=== PATIENT | female | born 1930 | race African-American/Black ===

== ENCOUNTER 2016-12-23 10:50 | Outpatient (CLI) | payer MEDICARE, MEDICAID ==
--- NOTE | 2016-12-23 13:28 | MMO ---
BILATERAL MAMMOGRAMS: HISTORY: Screening mammography. COMPARISON: 11/21/2013 and 12/08/2015. FINDINGS: Scattered fibroglandular densities and benign-appearing predominantly vascular calcifications are ap parent. There is no dominant mass or suspicious calcifications. The study was evaluated with the assistance of computer-aided detection. IMPRESSION: BI-RADS category 1. Negative. Suggest routine followup. POS: ONEL
== END 2016-12-23 10:51 | disposition home or self-care (01) ==
LOC: MAMMO 10:50
PROVIDERS: ATTEND Nurse Practitioner Family
DX: Z12.31 Encounter for screening mammogram for malignant neoplasm of breast (principal)
CPT/HCPCS: 77067; G0202

== ENCOUNTER 2017-12-27 10:00 | Outpatient (CLI) | payer MEDICARE, MEDICAID | END 2017-12-27 10:01 | disposition home or self-care (01) | LOC: BICMAMMO 10:00 | PROVIDERS: ATTEND Nurse Practitioner Family | DX: Z12.31 Encounter for screening mammogram for malignant neoplasm of breast (principal) | CPT/HCPCS: 77063; 77067 ==

== ENCOUNTER 2018-12-28 09:33 | Outpatient (CLI) | payer MEDICARE, MEDICAID ==
--- NOTE | 2018-12-28 09:57 | MMO ---
Bilateral MAMMO Bilat Screen [facility]. CLINICAL HISTORY: Patient is 88 years old and is seen for screening. VIEWS: The views performed were: . FILMS COMPARED: The present examination has been compared to a prior imaging study performed at [facility] on 12/27/2017. This study has been interpreted with the assistance of computer-aided detection. MAMMOGRAM FINDINGS: There are scattered fibroglandular densities. There is a focal asymmetry seen in the upper-outer region of the right breast. In the left breast, there are no suspicious masses, calcifications or areas of architectural distortion. IMPRESSION: FOCAL ASYMMETRY IN THE RIGHT BREAST REQUIRES ADDITIONAL EVALUATION. SPOT COMPRESSION IS RECOMMENDED. AN ULTRASOUND EXAM IS RECOMMENDED IF NEEDED. THE RESULTS OF THIS EXAM WERE SENT TO THE PATIENT. ACR BI-RADS Category 0 - Incomplete: Need additional imaging evaluation. [facility] will notify the patient of the need for additional imaging services. MAMMOGRAPHY NOTE: 1. A negative mammogram report should not delay a biopsy if a dominant of clinically suspicious mass is present. 2. Approximately 10% to 15% of breast cancers are not detected by mammography. 3. Adenosis and dense breasts may obscure an underlying neoplasm. Reported by: Tamica OCONNELL Electonically Signed: [id number]
--- NOTE | 2018-12-28 10:40 | MMO ---
Right Breast MAMMO Unilat Diag [facility]DI [facility]. CLINICAL HISTORY: Patient is 88 years old and is seen for diagnostic exam. The patient has no family history of breast cancer. The patient has no personal history of cancer. VIEWS: The views performed were: right craniocaudal spot compression with tomosynthesis; right mediolateral oblique spot compression with tomosynthesis; and right mediolateral with tomosynthesis. FILMS COMPARED: The present examination has been compared to prior imaging studies performed at [facility] on 12/23/2016, 12/27/2017 and 12/28/2018. This study has been interpreted with the assistance of computer-aided detection. MAMMOGRAM FINDINGS: There are scattered fibroglandular densities. There is an irregular mass measuring 6 millimeters seen in the right breast at 8 o'clock. IMPRESSION: MASS IN THE RIGHT BREAST IS SUSPICIOUS. BIOPSY IS RECOMMENDED. THE RESULTS OF THIS EXAM WERE SENT TO THE PATIENT. ACR BI-RADS Category 4 - Suspicious abnormality - biopsy should be considered MAMMOGRAPHY NOTE: 1. A negative mammogram report should not delay a biopsy if a dominant of clinically suspicious mass is present. 2. Approximately 10% to 15% of breast cancers are not detected by mammography. 3. Adenosis and dense breasts may obscure an underlying neoplasm. Reported by: Tamica OCONNELL Electonically Signed: [id number]
--- NOTE | 2018-12-28 11:24 | ULT ---
ULTRASOUND RIGHT BREAST: Date: 12/28/18 HISTORY: Breast mass. COMPARISON: Multiple prior mammograms, including a diagnostic mammogram same date. FINDINGS: Real-time Romero scale and color evaluation of the right breast was first performed by the technologist and then by the radiologist in real-time. Corresponding to the mammographic finding, 8 o'clock, 6 cm from the nipple, is a taller than wide mas s with posterior acoustic shadowing, angular margins, and peripheral echogenic halo. This measures up to 6-7 mm. IMPRESSION: BI-RADS Category 4 - Suspicious. Ultrasound-guided biopsy recommended. Provider notified of findings via telephone. CODE CR. POS: OFF
== END 2018-12-28 09:34 | disposition home or self-care (01) ==
LOC: BICMAMMO 09:33
PROVIDERS: ATTEND Nurse Practitioner Family
DX: Z12.31 Encounter for screening mammogram for malignant neoplasm of breast (principal); N64.89 Other specified disorders of breast
CPT/HCPCS: 76642; 77063; 77065; 77067; G0279

== ENCOUNTER → 2019-01-04 | Day surgery (SDC) | payer MEDICARE, MEDICAID ==
--- NOTE | 2019-01-04 14:00 | MMO ---
Right Breast MAMMO Unilat Diag [facility]DI [facility]. CLINICAL HISTORY: Patient is 88 years old and is seen for breast biopsy. The patient has no family history of breast cancer. The patient has no personal history of cancer. VIEWS: The views performed were: . FILMS COMPARED: The present examination has been compared to prior imaging studies performed at [facility] on 12/27/2017 and 12/28/2018. This study has been interpreted with the assistance of computer-aided detection. MAMMOGRAM FINDINGS: There are scattered fibroglandular densities. There is a biopsy clip seen in the upper-outer region of the right breast. IMPRESSION: BIOPSY CLIP IN THE RIGHT BREAST IS CONFIRMED UTILIZING POST PROCEDURE MAMMOGRAM. THE RESULTS OF THIS EXAM WERE SENT TO THE PATIENT. MAMMOGRAPHY NOTE: 1. A negative mammogram report should not delay a biopsy if a dominant of clinically suspicious mass is present. 2. Approximately 10% to 15% of breast cancers are not detected by mammography. 3. Adenosis and dense breasts may obscure an underlying neoplasm. Reported by: SHREE ALAS MD Electonically Signed: [id number]
--- NOTE | 2019-01-04 14:48 | ULT ---
ULTRASOUND GUIDED RIGHT BREAST BIOPSY: INDICATION: Right breast mass, lower outer quadrant. PROCEDURE: Informed consent was obtained and the patient was escorted to the procedural suite and placed in the supine position. The right breast was prepped and draped in the standard sterile fashion. Topical a nesthesia with 1% Lidocaine was performed. A small skin incision was made through which a 14 gauge b iopsy device was advanced to the leading edge of the mass. Four subsequent core specimens were acqui red under ultrasound guidance with imaging stored for documentation. The biopsy needle was removed. The biopsy marking clip was then advanced to the site of biopsy. No procedural complications were p resent. The patient was discharged in stable condition following postprocedural mammographic clip pl acement views. IMPRESSION: Technically successful ultrasound-guided right breast biopsy. Pathology results are pending. POS: OFF
== END ==
LOC: BICULT 11:54
PROVIDERS: ATTEND Nurse Practitioner Family
PROC: 0H9T3ZX Drainage of Right Breast, Percutaneous Approach, Diagnostic (ICD-10-PCS; principal; 2019-01-04)
DX: C50.511 Malignant neoplasm of lower-outer quadrant of right female breast (principal)
CPT/HCPCS: 19083; 88305; 88341; 88342

== ENCOUNTER 2019-02-12 06:38 | Outpatient (CLI) | payer MEDICARE, MEDICAID ==
[2019-02-12 11:18] LABS: #Eosinphils 0.1 thou/uL (0.0-0.7); #Lymphocytes 1.7 thou/uL (1.20-3.40); #Monocytes 0.3 thou/uL (0.11-0.59); #Neutrophils 2.3 thou/uL (1.40-6.50); %Basophils 0.6 % (0.0-1.0); %Eosinophils 2.4 % (0.0-10.0); %Monocytes 7.6 % (0.0-10.0); %Neutrophils 51.4 % (42.0-75.0); Hemoglobin 13.5 g/dL (12.0-16.0); Mean Corpuscular HGB CONC 32.1 g/dL (32.0-36.0); Mean Corpuscular Hemoglobin 31.8 pg (27.0-31.0); Platelet Count 201 thou/uL (130-400); RBC Distribution Width 12.4 % (11.5-14.5); Red Blood Cell (RBC) Count 4.24 mill/uL (4.20-5.40); White Blood Cell (WBC) Count 4.5 thou/uL (4.8-10.8)
[2019-02-12 11:54] LABS: Anion Gap 14 mmol/L (10-20); BUN (Urea Nitrogen) 14 mg/dL (9.8-20.1); Calc. Creatinine Clearance 0 mL/min (70-130); Calcium 9.4 mg/dL (7.8-10.44); Carbon Dioxide 26 mmol/L (23-31); Chloride 106 mmol/L (98-107); Estimated GFR-MDRD Greater than 90; Glucose 97 mg/dL (83-110); Sodium 142 mmol/L (136-145)
--- NOTE | 2019-02-15 13:10 | EKG ---
Test Reason : Blood Pressure : / mmHG Vent. Rate : 076 BPM Atrial Rate : 076 BPM P-R Int : 200 ms QRS Dur : 118 ms QT Int : 400 ms P-R-T Axes : 040 -55 007 degrees QTc Int : 450 ms Normal sinus rhythm Left anterior fascicular block Moderate voltage criteria for LVH, may be normal variant Abnormal ECG Confirmed by MORENO MENDEZ ([id number]) on 02/15/2019 1:09:28 PM Referred By: DEWAYNE Confirmed By:MORENO MENDEZ
== END 2019-02-12 06:39 | disposition home or self-care (01) ==
LOC: LABBT 06:38
PROVIDERS: ATTEND Surgery
DX: Z01.818 Encounter for other preprocedural examination (principal); C50.911 Malignant neoplasm of unspecified site of right female breast
CPT/HCPCS: 80048; 85025; 93005; 93010

== ENCOUNTER 2019-02-15 06:46 | Day surgery (SDC) | payer MEDICARE, MEDICAID ==
--- NOTE | 2019-02-15 08:20 | MMO ---
MAMMOGRAPHIC GUIDED NEEDLE LOCALIZATION: CLINICAL HISTORY: Right breast cancer. PROCEDURE: Informed consent was obtained. The patient was escorted to procedural suite. Right breast was prepped and draped in standard sterile fashion, placed into compression, and area of recent biopsy with an adjacent marking clip was localized. Using tangential imaging due to posterior location of the findin g, a lateral approach was selected. Using a 7.5 cm Buxton needle, the area of recent biopsy was traversed with needle and wire, which is adjacent to posteriorly located marking clip. Needle was sec ured to the patient. Images were stored and marked for documentation. Patient was transported to nuclear medicine to undergo right breast lymphoscintigraphy. IMPRESSION: Technically successful right breast needle localization. Transcribed Date/Time: 02/15/2019 8:47 AM
--- NOTE | 2019-02-15 09:08 | NM ---
Right breast lymphoscintigraphy CLINICAL HISTORY: Right breast malignancy FINDINGS: Views of the right upper chest reveal radiotracer activity localizing to right axillary lym ph nodes. IMPRESSION: Scintigraphic activity within right axillary lymph nodes.
[2019-02-15] MEDS ORDERED: Bupivacaine 0.25% HCL 30 ML VIAL ONE (11:57)
[2019-02-15] MEDS ORDERED: Isosulfan Blue 50 MG/5 ML VIAL ONE (11:57)
[2019-02-15] MEDS ORDERED: Lidocaine 1% w/Epinephrine 1:100K 20 ML VIAL ONE (11:57)
[2019-02-15] MEDS ORDERED: Midazolam HCl 2 mg/2 ml Vial ONE (12:04)
[2019-02-15] MEDS ORDERED: Fentanyl 100 MCG/2 ML VIAL ONE (12:04)
[2019-02-15] MEDS ORDERED: HYDROcodone/Acetaminophen 5/325 mg Tablet ONE (13:51)
[2019-02-15] MEDS ORDERED: Lidocaine 1% PF 5 ML VIAL ONE (13:54)
[2019-02-15] MEDS ORDERED: Ondansetron PF 4 MG/2 ML Vial ONE (13:54)
[2019-02-15] MEDS ORDERED: PROPOFOL 200 MG/20 ML VIAL ONE (13:54)
--- NOTE | 2019-02-16 09:29 | MMO ---
SURGICAL SPECIMEN RADIOGRAPH: INDICATIONS: Excisional biopsy. FINDINGS: Radiograph of specimen from excisional biopsy is provided, which reveals a marking clip as well as ma mmographic density. Traversing vascular calcifications are present. IMPRESSION: Marking clip and adjacent parenchymal density is contained within the excised radiograph specimen. Telephone call to the operating suite provided at the time of radiograph submission. CODE CR
--- NOTE | 2019-02-16 10:37 | OP ---
DATE OF PROCEDURE: 02/15/2019 PREOPERATIVE DIAGNOSIS: Right breast invasive ductal cell carcinoma, clinical stage T1 N0 M0. POSTOPERATIVE DIAGNOSIS: Right breast invasive ductal cell carcinoma, clinical stage T1 N0 M0. PROCEDURES: 1. Right partial mastectomy after needle localization. 2. Right deep axillary node biopsy using sentinel node protocol. ANESTHESIA: General. ESTIMATED BLOOD LOSS: Minimal. COMPLICATIONS: None. SPECIMENS: Right breast max marked with 2 short superior, one long lateral. Specimen x-ray revealed the clip and lesion to be in the specimen sent to Path for final diagnosis. Neely lymph node sent for final diagnosis as well. TECHNIQUE: The patient undergone preop lymphoscintigraphy as well as placement of needle localization wire to area previous biopsy of known cancer in the right breast. She was taken to the operating room and laid supine on the operating table. After general anesthetic was obtained, a 5 mL of methylene blue dye was infiltrated under the right nipple, massaged for 10 minutes. The right chest, breast, and axilla were all prepped and draped in a sterile fashion. Incision was made on the inferior hairline of the right axilla. Neoprobe was used to find an area of increased uptake. The clavipectoral fascia was entered. Neely node one and two are removed and sent to pathology for final diagnosis. Background count dropped to zero. The wounds were irrigated and closed using 3-0 Vicryl, 4-0 Monocryl, and Dermabond. Next, incision was made around the right and inferior aspects of the right nipple. On the areolar edge, flaps were raised superiorly and the inferolaterally all the way down the chest wall around the end of needle localization wire. The specimen was marked with 2 short superior, one long lateral, and sent to specimen. X-ray, which revealed the clip and lesion to be visible in the specimen. The specimen was sent to Path for final diagnosis. The wound was irrigated. Local anesthetic was applied. The wound was closed using 3-0 Vicryl, 4-0 Monocryl, and Dermabond. Patient was sent to Recovery in stable condition. All instrument counts, needle counts, and lap counts were correct. Job ID: [id number]
== END 2019-02-15 15:10 | disposition home or self-care (01) ==
LOC: SDC 06:46
PROVIDERS: ATTEND Surgery
PROC: 0HBT0ZZ Excision of Right Breast, Open Approach (ICD-10-PCS; principal; 2019-02-15)
PROC: 07B50ZX Excision of Right Axillary Lymphatic, Open Approach, Diagnostic (ICD-10-PCS; 2019-02-15)
DX: C50.511 Malignant neoplasm of lower-outer quadrant of right female breast (principal); M19.90 Unspecified osteoarthritis, unspecified site; I11.9 Hypertensive heart disease without heart failure; G89.29 Other chronic pain; Z17.0 Estrogen receptor positive status [ER+]; Z79.899 Other long term (current) drug therapy
CPT/HCPCS: 19281; 19301; 38525; 38900; 76098; 78195; 88307; 88342; A9541; Q9968; J0690; J2001; J2250; J2405; J2704; J3010; S0020

== ENCOUNTER 2019-04-02 08:43 | Outpatient (CLI) | payer MEDICARE, MEDICAID ==
--- NOTE | 2019-04-02 09:27 | BD ---
EXAM: Bone densitometry using DEXA HISTORY: 88 yo female. Screening for postmenopausal osteoporosis FINDINGS: L1--bone mineral density 1.218 g/sq cm; T score 2.1 L2--bone mineral density 1.286 g/sq cm; T score 2.3 L3--bone mineral density 1.261 g/sq cm; T score 1.6 L4--bone mineral density 1.213 g/sq cm; T score 1.4 Total L1-L4--bone mineral density 1.243 g/sq cm; T score 1.8 Left femoral neck--bone mineral density0.601; T score -2.2 Total proximal left femur--bone mineral density 0.808; T score -1.1 The 10 year fracture risk for a major osteoporotic fracture is 6.1% and for a hip fracture is 1.9%. IMPRESSION: Osteopenia
== END 2019-04-02 08:44 | disposition home or self-care (01) ==
LOC: BICMAMMO 08:43
PROVIDERS: ATTEND Internal Medicine Hematology & Oncology
DX: Z13.820 Encounter for screening for osteoporosis (principal); M85.852 Other specified disorders of bone density and structure, left thigh; Z78.0 Asymptomatic menopausal state
CPT/HCPCS: 77080

== ENCOUNTER 2020-01-15 10:08 | Outpatient (CLI) | payer MEDICARE, MEDICAID ==
--- NOTE | 2020-01-15 10:49 | MMO ---
Bilateral MAMMO Bilat Diag [facility]. CLINICAL HISTORY: Patient is 89 years old and is seen for diagnostic exam. The patient has no family history of breast cancer. The patient has a history of Excisional biopsy procedure revealed invasive lobular right breast carcinoma in January,. VIEWS: The views performed were: bilateral craniocaudal with tomosynthesis; bilateral mediolateral oblique with tomosynthesis; and bilateral mediolateral with tomosynthesis. FILMS COMPARED: The present examination has been compared to prior imaging studies performed at [facility] on 12/28/2018 and 01/04/2019. This study has been interpreted with the assistance of computer-aided detection. MAMMOGRAM FINDINGS: There are scattered fibroglandular densities. Benign calcifications are noted bilaterally. There are stable right post-operative changes. There are no suspicious masses, suspicious calcifications, or new areas of architectural distortion. IMPRESSION: THERE IS NO MAMMOGRAPHIC EVIDENCE OF MALIGNANCY. A ROUTINE FOLLOW-UP MAMMOGRAM IN 1 YEAR IS RECOMMENDED. THE RESULTS OF THIS EXAM WERE SENT TO THE PATIENT. ACR BI-RADS Category 2 - Benign finding MAMMOGRAPHY NOTE: 1. A negative mammogram report should not delay a biopsy if a dominant of clinically suspicious mass is present. 2. Approximately 10% to 15% of breast cancers are not detected by mammography. 3. Adenosis and dense breasts may obscure an underlying neoplasm. Reported by: YESICA SURESH MD Electonically Signed: [id number]
== END 2020-01-15 10:09 | disposition home or self-care (01) ==
LOC: BICMAMMO 10:08
PROVIDERS: ATTEND Internal Medicine Hematology & Oncology
DX: C50.111 Malignant neoplasm of central portion of right female breast (principal)
CPT/HCPCS: 77066; G0279